=== PATIENT | female | born 1965 | race Caucasian/White ===

== ENCOUNTER 2016-10-21 20:14 | Emergency (ER) | payer MEDICAID ==
[2016-10-21 20:20] VITALS: BP 177/83; BMI 27.6
--- NOTE | 2016-10-21 20:31 | DR.GENAD ---
HPI - PCP Primary Care Physician: Blanca - Complaint/Symptoms Chief Complaint:: "About 3 or 4 days ago I started having bad left leg pain. I haven't done anything to it, it just started hurting. It has tiny little knots in it as well." Self Treatment fo Chief Complaint: [place] 7.5 - Nurses notes reviewed Nurses Notes Review: Yes - Source History Provided: Patient, Family Member - Mode of Arrival Mode of Arrival: Wheelchair - Timing Onset of Chief Complaint: 10/18/16 Came on: Gradually - Duration Duration: Constant How lon Duration: Days - Location Location: left leg - Severity Severity: Moderate - Modifying Factors Worsens:: movement - Associated Signs and Symptoms Associated Signs and Symptoms: none PMH - PMH Past Medical History: Yes Past Medical History: Asthma, Diabetes, Hypertension Past Surgical History: Yes Surgical History: Angioplasty/Stents, Appendectomy, Hysterectomy, Tonsillectomy - Family History History of Family Medical Conditions: Yes Family Medical History: Cancer, Heart Failure - Social History Does patient currently use any type of tobacco product: Yes Have you used tobacco products in the last 12 months: Yes Type of Tobacco Use: Cigarettes Does any household member use tobacco: Yes Alcohol Use: None Do you use any recreational Drugs:: No Lives With: Spouse Lives Where: Home - infectious screening In the last 2 months have you had wt loss of >10#?: NO Have you had fever, night sweats or hemotysis?: No Have you traveled outside the country in the last 6 months?: No Isolation: Standard ROS - Review of Systems Constitutional: No Symptoms Reported Eyes: No Symptoms Reported ENTM: No Symptoms Reported Respiratoy: No Symptoms Reported Cardiovascular: No Symptoms Reported Gastrointestinal/Abdominal: No Symptoms Reported Genitourinary: No Symptoms Reported Neurological: No Symptoms Reported Musculoskeletal: Leg (left leg calf pain) Integumentary: No Symptoms Reported Hematologic/Lymphatic: No Symptoms Reported Endocrine: No Symptoms Reported Psychiatric: Depression All Other Systems: Reviewed and Negative PE - Vital Signs Vitals: Temperature 99.8 F Pulse Rate 78 Respiratory Rate 18 Blood Pressure 177/83 O2 Sat by Pulse Oximetry 96 - General Limitations: No Limitations General Appearance: Alert, In No Apparent Distress - Head Head Exam: Normal Inspection - Eyes Eye exam: Normal Appearance, EOMI. negative: Scleral Icterus, Conjunctival Injection - ENT ENT Exam: Normal Exam - Neck Neck Exam: Normal Inspection, Full ROM, Trachea Midline - Respiratory Respiratory Exam: negative: Accessory Muscle Use, Respiratory Distress - Extremities Extremities Exam: Normal Inspection, Full ROM, Tenderness (left calf) - Neurologic Neurological Exam: Alert, Oriented X3, CN II-XII Intact - Psychiatric Psychiatric Exam: Depressed - Skin Skin Exam: Intact, Normal Color ROR - XRAY XRAY Interpreted by: Radiologist XRAY Findings: Doppler left leg: no DVT - Diagnosis Discharge Problem: Leg pain Qualifiers: Laterality: left Qualified Code(s): M79.605 - Pain in left leg - Discharge Plan Condition: Stable Prescriptions: Indomethacin [Indocin Cap 25 mg] 25 mg PO TID #30 cap - Follow ups/Referrals Follow ups/Referrals: STEFAN BEY [Primary Care Provider] - 3 days - Instructions
--- NOTE | 2016-10-21 22:46 | VAS ---
Exam: Left lower extremity ultrasound exam History: Lower extremity swelling/pain Comparison: None Technique: Real-time duplex scan of the lower extremity venous system was performed using B-mode/gra yscale imaging, Doppler spectral analysis, and color flow. Findings: Evaluation of the deep veins of the left lower extremity from the common femoral vein thr ough the popliteal vein demonstrated normal patency and no evidence of DVT. There was normal compre ssibility throughout the deep venous system. There was normal augmentation response, Valsalva respo nse, and respiratory phasicity. The deep veins below the knee were patent. Conclusion: Normal left lower extremity venous exam. No evidence of DVT. Reported By:
[2016-10-21] MEDS ORDERED: NORCO 5/325 MG TAB PO ONE (23:03)
[2016-10-21] MEDS ORDERED: NORCO 5/325 MG TAB ONE (23:05)
== END 2016-10-21 23:11 | disposition home or self-care (01) ==
LOC: ER 20:23
DX: M79.605 Pain in left leg (principal)
CPT/HCPCS: 93971; 99282

== ENCOUNTER 2017-07-02 18:09 | Emergency (ER) | payer MEDICAID ==
[2017-07-02 18:21] VITALS: BP 135/76; BMI 27.1
--- NOTE | 2017-07-02 19:46 | DR.GENAD ---
HPI - PCP Primary Care Physician: [email or web address] - Complaint/Symptoms Chief Complaint Doctors Comments: History as stated. Chief Complaint:: lt ear pain popping pt states" I've had tubes but they come out before i left the doctors office" - Source History Provided: Patient - Mode of Arrival Mode of Arrival: Ambulatory - Timing Onset of Chief Complaint: 07/02/17 PMH - PMH Past Medical History: Yes Past Medical History: Asthma, Coronary Artery Disease, Diabetes, Headaches, Hypertension Past Surgical History: Yes Surgical History: Angioplasty/Stents, Appendectomy, Hysterectomy, Tonsillectomy - Family History History of Family Medical Conditions: Yes Family Medical History: Cancer, Heart Failure - Social History Type of Tobacco Use: Cigarettes Does any household member use tobacco: Yes Alcohol Use: None Do you use any recreational Drugs:: No Lives With: Family Lives Where: Home - infectious screening In the last 2 months have you had wt loss of >10#?: NO Have you had fever, night sweats or hemotysis?: No Have you traveled outside the country in the last 6 months?: No Isolation: Standard ROS - Review of Systems Constitutional: No Symptoms Reported Eyes: No Symptoms Reported ENTM: Ear Pain Respiratoy: No Symptoms Reported Cardiovascular: No Symptoms Reported Gastrointestinal/Abdominal: No Symptoms Reported Genitourinary: No Symptoms Reported Neurological: No Symptoms Reported Musculoskeletal: No Symptoms Reported Integumentary: No Symptoms Reported Hematologic/Lymphatic: No Symptoms Reported Endocrine: No Symptoms Reported Psychiatric: No Symptoms Reported All Other Systems: Reviewed and Negative PE - Vital Signs Vitals: Temperature 97.7 F Pulse Rate 84 Respiratory Rate 20 Blood Pressure 135/76 O2 Sat by Pulse Oximetry 98 - General Limitations: No Limitations General Appearance: Alert, In No Apparent Distress - Head Head Exam: Normal Inspection, Atraumatic - Eyes Eye exam: Normal Appearance, PERRL, EOMI - ENT ENT Exam: Normal Exam, Normal Oropharynx. negative: TM's Normal Bilaterally ( Left TM red retracted w/o otorrhea) External Ear Exam: Normal External Inspection TM/Canal Exam: Bilateral Normal Nose Exam: Normal Nose Exam Mouth Exam: Normal Inspection Throat Exam: Normal Inspection - Neck Neck Exam: Normal Inspection, Full ROM - Chest Chest Inspection: Normal Inspection - Respiratory Respiratory Exam: Normal Lung Sounds Bilat Respiratory Exam: Bilateral Clear to Auscultation - Cardiovascular Cardiovascular Exam: Regular Rate - Abdominal Exam Abdominal Exam: Normal Inspection, Normal Bowel Sounds Abdominal Tenderness: negative: RUQ, RLQ, LUQ, LLQ, Epigastrium, Suprapubic, Diffuse, Mild, Moderate, Severe, Other - Extremities Extremities Exam: Normal Inspection, Full ROM - Back Back Exam: Normal Inspection, Full ROM - Neurologic Neurological Exam: Alert, Oriented X3, CN II-XII Intact - Psychiatric Psychiatric Exam: Normal Affect, Normal Mood - Skin Skin Exam: Warm, Dry, Intact - Diagnosis Discharge Problem: Otitis media Qualifiers: Otitis media type: suppurative Chronicity: acute Laterality: left Recurrence: not specified as recurrent Spontaneous tympanic membrane rupture: without spontaneous rupture Qualified Code(s): H66.002 - Acute suppurative otitis media without spontaneous rupture of ear drum, left ear - Discharge Plan Condition: Stable - Follow ups/Referrals Follow ups/Referrals: STEFAN BEY [Primary Care Provider] - 3 days - Instructions
== END 2017-07-02 20:08 | disposition home or self-care (01) ==
LOC: ER 18:31
DX: H66.002 Acute suppurative otitis media without spontaneous rupture of ear drum, left ear (principal)
CPT/HCPCS: 99281; 99282

== ENCOUNTER 2017-09-11 16:21 | Emergency (ER) | payer MEDICAID ==
[2017-09-11 16:28] VITALS: BP 138/79; BMI 26.6
[2017-09-11] MEDS ORDERED: NORFLEX INJ IM ONE (18:31)
[2017-09-11] MEDS ORDERED: DECADRON INJ IM ONE (18:31)
[2017-09-11] MEDS ORDERED: TORADOL 60 MG VIAL IM ONE (18:31)
--- NOTE | 2017-09-11 18:33 | DR.EXTPAIN ---
HPI - Time seen Time seen: 18:10 - PCP Primary Care Physician: anna - HPI Comment HPI Comment: WORSE TONIGHT. HOME MEDS DID NOT HELP. BACK PAIN STARTED 10DAYS AGO. IMROVE, THEN GOT WORSE. - Complaint/Symptoms Chief Complaint Doctor Comments: LOWER BACK PAIN GOING TO LLE TIMES 4 DAYS. Chief Complaint:: patient stated she has been having back pain for 10 days ago. and the past 4 to 5 days her left leg has been very painful. Self Treatment fo Chief Complaint: [place] - Nurses notes reviewed Nurses Notes Review: Yes - Source History Provided: Patient - Mode of arrival Mode of Arrival: Wheelchair - Timing Onset of Chief Complaint: 09/01/17 - Context History of: None - Associated signs and symptoms Associated Signs and Symptoms: Pain PMH - PMH Past Medical History: Yes Past Medical History: Asthma, Coronary Artery Disease, Diabetes, Headaches, Hypertension Past Surgical History: Yes Surgical History: Angioplasty/Stents, Appendectomy, Hysterectomy, Tonsillectomy - Family History History of Family Medical Conditions: Yes Family Medical History: Cancer, Heart Failure - Social History Does patient currently use any type of tobacco product: Yes Have you used tobacco products in the last 12 months: Yes Type of Tobacco Use: Cigarettes How many years tobacco product used: 35 Does any household member use tobacco: Yes Alcohol Use: None Do you use any recreational Drugs:: No Lives With: Family Lives Where: Home - infectious screening In the last 2 months have you had wt loss of >10#?: NO Have you had fever, night sweats or hemotysis?: No Have you traveled outside the country in the last 6 months?: No Isolation: Standard ROS - Review of Systems Constitutional: No Symptoms Reported Eyes: No Symptoms Reported ENTM: No Symptoms Reported Respiratoy: No Symptoms Reported Cardiovascular: No Symptoms Reported Gastrointestinal/Abdominal: No Symptoms Reported Genitourinary: No Symptoms Reported Neurological: No Symptoms Reported Musculoskeletal: Back Pain, Left, Leg Integumentary: No Symptoms Reported Hematologic/Lymphatic: No Symptoms Reported Endocrine: No Symptoms Reported All Other Systems: Reviewed and Negative PE - Vital Signs Vitals: Temperature 99.2 F Pulse Rate 97 Respiratory Rate 18 Blood Pressure 138/79 O2 Sat by Pulse Oximetry 99 - General Limitations: No Limitations General Appearance: Alert - Head Head Exam: Normal Inspection - Eyes Eye exam: Normal Appearance - ENT ENT Exam: Normal External Ear Exam - Neck Neck Exam: Trachea Midline - Chest Chest Inspection: Symmetric Chest Wall Rise - Respiratory Respiratory Exam: Normal Lung Sounds Bilat Respiratory Exam: Bilateral Clear to Auscultation - Cardiovascular Cardiovascular Exam: Regular Rate, Normal Rhythm, Normal Heart Sounds - Abdominal Exam Abdominal Exam: Normal Bowel Sounds. negative: Tenderness - Extremities Extremities Exam: Tenderness - Back Back Exam: Paraspinal Tenderness - Neurological Neurological Exam: Alert, Oriented X3, CN II-XII Intact - Psychiatric Psychiatric Exam: Normal Affect, Normal Mood - Skin Skin Exam: Normal Color MDM - Differential Diagnosis Differential Diagnosis: Other (NEUROPATHIC PAIN, SCIATICA, MUSCULOSKELETAL PAIN , BACK PAIN.) Course - Treatment Treatment: SEE ORDERS. - Education/Counseling Education/Counseling: Patient, Education Educated On: Treatment, Diagnosis, Needs for Follow Up - Diagnosis Discharge Problem: Back pain Qualifiers: Back pain location: low back pain Chronicity: chronic Back pain laterality: bilateral Sciatica presence: with sciatica Sciatica laterality: sciatica of left side Qualified Code(s): M54.42 - Lumbago with sciatica, left side Sciatica Qualifiers: Laterality: unspecified laterality Qualified Code(s): M54.30 - Sciatica, unspecified side - Discharge Plan Disposition: 01 HOME, SELF-CARE Condition: Stable - Follow ups/Referrals Follow ups/Referrals: STEFAN BEY [Primary Care Provider] - 3 days - Instructions Instructions: Sciatica, Back Pain, Adult, [id number] Additional Instructions: RETURN TO ED IF WORSE. CONTINUE WITH PAIN MEDS AT HOME.
[2017-09-11] MEDS ORDERED: NORFLEX INJ ONE (18:37)
[2017-09-11] MEDS ORDERED: DECADRON INJ ONE (18:37)
[2017-09-11] MEDS ORDERED: TORADOL 60 MG VIAL ONE (18:37)
== END 2017-09-11 19:40 | disposition home or self-care (01) ==
LOC: ER 16:30
DX: M54.30 Sciatica, unspecified side (principal); M54.42 Lumbago with sciatica, left side
CPT/HCPCS: 96372; 99282; J1100; J1885; J2360